=== PATIENT | male | born 1985 | race Caucasian/White ===

== ENCOUNTER 2021-01-25 12:19 | Emergency (ER) | payer BC, SELFPAY ==
[2021-01-25] VITALS (7 sets, daily range): BP systolic 123–144; BP diastolic 67–78; PULSE 74–109; RESP 16–20; TEMP 36.6–36.8; O2SAT 96–100; BMI 18.9; BMI 221360.5
--- NOTE | 2021-01-25 12:33 | PC.NURSE ---
CECILIA Whitfield MD NOTIFED
[2021-01-25 13:04] LABS: Basophils # 0.1 K/mm3 (0-0.2); Basophils % 1.2 % (0.1-2.0); Chloride 99 mmol/L (98-107); Eosinophils # 0.2 K/mm3 (0.0-0.4); Eosinophils % 2.2 % (0.1-12.0); Hematocrit 41.7 % (42.0-52.0); Hemoglobin 13.6 g/dL (14.1-18.0); Lymphocytes # 2.3 K/mm3 (0.7-4.5); Lymphocytes % 30.6 % (10-50); Mean Corpuscular HGB Conc 32.6 g/dL (31.8-35.4); Mean Corpuscular Hemoglobin 31.1 pg (27.0-31.2); Mean Corpuscular Volume 95.5 fl (80-94); Mean Platelet Volume 7.9 fl (7.4-10.4); Monocytes # 0.5 K/mm3 (0.1-1.0); Monocytes % 6.2 % (1.7-9.3); Neutrophils # 4.6 K/mm3 (1.8-7.8); Neutrophils % 59.8 % (37.0-80.0); Platelet Count 223 K/mm3 (142-424); Red Blood Count 4.37 M/mm3 (4.60-6.20); Red Cell Distribution Width 13.3 % (11.5-17.5); White Blood Count 7.7 K/mm3 (4.8-10.8)
[2021-01-25 13:05] LABS: Potassium 3.8 mmoL/L (3.5-5.1); Sodium 135 mmol/L (136-145)
[2021-01-25 13:07] LABS: VBG Base Excess 0.9 mmol/L (-2.4-2.3); VBG HCO3 25.2 mmol/L (23-30); VBG Oxygen Saturation 97.4 % (50-70); VBG PH 7.43 mmol/L (7.31-7.41); VBG PO2 95.1 mmol/L (28-40); VBG Total CO2 26.4 mmol/L (23-27)
[2021-01-25 13:07] LABS: Alanine Aminotransferase 60 U/L (12-78); Aspartate Amino Transferase 32 U/L (17-59); Blood Urea Nitrogen 16 mg/dl (9-20); Creatinine Clearance Estimated 246 mL/min (50-200); Estimated Glomerular Filt Rate 243 ml/min (>60); GFR (African American) 295 ML/MIN (>60)
[2021-01-25 13:08] LABS: Albumin Level 3.8 g/dl (3.5-5.0); Albumin/Globulin Ratio 1.5 (1.1-1.8); Alkaline Phosphatase 97 U/L (38-126); Anion Gap 9.8 mEq/L (5-15); Bilirubin,Total 1.7 mg/dl (0.2-1.3); Calcium 9.5 mg/dl (8.4-10.2); Carbon Dioxide 30 mmol/L (22.0-30.0); Globulin 2.5 g/dL (1.3-3.2); Total Protein,Serum 6.3 g/dl (6.3-8.2)
[2021-01-25 13:11] LABS: Glucose 572 mg/dl (74-100)
[2021-01-25 14:03] LABS: Acetone, Serum (Rapid) None Detected (None Detect)
--- NOTE | 2021-01-25 14:17 | PC.NURSE ---
REPEAT GLUCOSE CHECK: 514. MADE AWARE
--- NOTE | 2021-01-25 14:19 | HMH.EDGENADL ---
ED Disposition Clinical Impression: Hyperglycemia due to type 1 diabetes mellitus, Lightheaded, Nausea Disposition: Home, Self-Care Condition on Discharge: Good Instructions: DI for Hyperglycemia -- Adult Additional Instructions: Continue your usual diabetes treatment. Follow-up with your primary care doctor, call tomorrow. Return to the emergency department any worsening of symptoms. Referrals: Sundeep Lowery [Primary Care Provider] - - Critical Care Critical Care Time: No Attestation: On 01/25/21, the high probability of a clinically significant, sudden or life threatening deterioration of the following system(s) required my full and direct attention, intervention and personal management. The time I documented below is in addition to time spent performing reported procedures but includes the following listed in this critical care notation. Medical Decision Making - Ariel Inquiry Pt receiving controlled substance: No Vital Signs: 01/25/21 12:19 01/25/21 12:28 01/25/21 12:46 Temperature 97.9 F 98.3 F Temperature Source Oral Oral Pulse Rate [Right Radial] 91 H 105 H 74 Respiratory Rate 18 18 16 Blood Pressure [Right Arm] 123/71 127/75 125/78 Blood Pressure Mean [Right Arm] 88 92 93 Blood Pressure Source [Right Arm] Automatic Cuff Automatic Cuff Blood Pressure Position [Right Arm] Supine Supine Supine 02 Sat by Pulse Oximetry 98 100 99 Oxygen Delivery Method Room Air Room Air 01/25/21 13:19 01/25/21 13:30 01/25/21 14:00 Temperature Temperature Source Pulse Rate [Right Radial] 102 H 88 91 H Respiratory Rate 17 16 Blood Pressure [Right Arm] 127/71 144/71 H 123/67 Blood Pressure Mean [Right Arm] 89 95 85 Blood Pressure Source [Right Arm] Automatic Cuff Blood Pressure Position [Right Arm] Supine Supine 02 Sat by Pulse Oximetry 96 98 98 Oxygen Delivery Method Room Air - Lab Data Lab results reviewed: Yes: I reviewed the patient's lab results. Lab Results 01/25/21 12:38: WBC 7.7, RBC 4.37 L, Hgb 13.6 L, Hct 41.7 L, MCV 95.5 H, MCH 31.1, MCHC 32.6, RDW 13.3, Plt Count 223, MPV 7.9, Neut % (Auto) 59.8, Lymph % (Auto) 30.6, [place] % (Auto) 6.2, Eos % (Auto) 2.2, Baso % (Auto) 1.2, Neut # (Auto) 4.6, Lymph # (Auto) 2.3, [place] # (Auto) 0.5, Eos # (Auto) 0.2, Baso # (Auto) 0.1 01/25/21 12:38: Sodium 135 L, Potassium 3.8, Chloride 99, Carbon Dioxide 30, Anion Gap 9.8, BUN 16, Creatinine 0.40 L, Estimated Creat Clear 246, Estimated GFR 243, Est GFR ( Amer) 295, Glucose 572 H*, Calcium 9.5, Total Bilirubin 1.7 H, AST 32, ALT 60, Alkaline Phosphatase 97, Total Protein 6.3, Albumin 3.8, Globulin 2.5, Albumin/Globulin Ratio 1.5, Acetone Level None detected 01/25/21 12:57: VBG pH 7.43 H, VBG pCO2 39.0, VBG pO2 95.1 H, VBG HCO3 25.2, VBG Total CO2 26.4, VBG O2 Saturation 97.4 H, VBG Base Excess 0.9 Result diagrams: 01/25/21 12:38 01/25/21 12:38 Orders (Tests/Meds): ED MEDICATIONS Discontinued Medications Generic Name Dose Route Start Last Admin Trade Name Mohan PRN Reason Stop Dose Admin Sodium Chloride 1,000 mls @ 999 mls/hr 01/25/21 13:00 01/25/21 13:09 Sod Chlor 0.9% 1000ml Bag IV 01/25/21 14:00 999 mls/hr .Q1H1M MANI Administration Medical Decision Narrative: The patient has hyperglycemia without signs of DKA. He now feels normal and wants to go home without any further evaluation. This sounds reasonable. He will be given injection of subcutaneous insulin prior to discharge and says that he will check his blood sugar at home. Return if any of his symptoms worsen. Follow-up with his primary care provider. General Adult HPI - General Chief complaint: Abdominal Pain Stated complaint: dizzy Time Seen by Provider: 01/25/21 14:19 Mode of Arrival: Wheelchair Limitations: No Limitations Description of Symptoms (Recalled from ER Triage Doc. by RN): RLQ pain - History of Present Illness HPI narrative: Patient says that he was running high blood sugar today and
[2021-01-25 19:43] LABS: POC Glucose,Bedside 529 (70-110)
[2021-01-25 19:43] LABS: POC Glucose,Bedside 514 (70-110)
== END 2021-01-25 15:02 | disposition home or self-care (01) ==
PROVIDERS: Emergency Provider Emergency Medicine; PCP Family Medicine
DX: E10.65 Type 1 diabetes mellitus with hyperglycemia (principal); Z79.4 Long term (current) use of insulin; Z79.84 Long term (current) use of oral hypoglycemic drugs
CPT/HCPCS: 80053; 82009; 82803; 82962; 85025; 96365; 96372; 99283

== ENCOUNTER 2022-06-18 21:06 | Inpatient (IN) | payer BC, SELFPAY ==
[2022-06-18] VITALS (9 sets, daily range): BP systolic 92–115; BP diastolic 53–71; PULSE 98–112; RESP 18; TEMP 37.4; O2SAT 97–100; BMI 18.6
[2022-06-18 21:55] LABS: Basophils # 0.1 K/mm3 (0-0.2); Basophils % 1.3 % (0.1-2.0); Eosinophils # 0.3 K/mm3 (0.0-0.4); Eosinophils % 2.6 % (0.1-12.0); Hematocrit 38.1 % (42.0-52.0); Hemoglobin 12.7 g/dL (14.1-18.0); Lymphocytes # 2.5 K/mm3 (0.7-4.5); Lymphocytes % 25.6 % (10-50); Mean Corpuscular HGB Conc 33.4 g/dL (31.8-35.4); Mean Corpuscular Hemoglobin 29.9 pg (27.0-31.2); Mean Corpuscular Volume 89.5 fl (80-94); Monocytes # 0.5 K/mm3 (0.1-1.0); Monocytes % 4.9 % (1.7-9.3); Neutrophils # 6.3 K/mm3 (1.8-7.8); Neutrophils % 65.6 % (37.0-80.0); Platelet Count 255 K/mm3 (142-424); Red Blood Count 4.26 M/mm3 (4.60-6.20); Red Cell Distribution Width 12.9 % (11.5-17.5); White Blood Count 9.6 K/mm3 (4.8-10.8)
[2022-06-18 21:55] LABS: POC Glucose,Bedside 402 (70-110)
[2022-06-18 21:56] LABS: Alanine Aminotransferase 59 U/L (12-78); Albumin Level 3.7 g/dl (3.5-5.0); Albumin/Globulin Ratio 1.6 (1.1-1.8); Alkaline Phosphatase 105 U/L (38-126); Anion Gap 23.9 mEq/L (5-15); Aspartate Amino Transferase 22 U/L (17-59); Bilirubin,Total 1.4 mg/dl (0.2-1.3); Blood Urea Nitrogen 22 mg/dl (9-20); Calcium 8.9 mg/dl (8.4-10.2); Chloride 107 mmol/L (98-107); Creatinine Clearance Estimated 97 mL/min (50-200); Estimated Glomerular Filt Rate 95 ml/min (>60); GFR (African American) 115 ML/MIN (>60); Globulin 2.3 g/dL (1.3-3.2); Potassium 3.9 mmoL/L (3.5-5.1); Sodium 137 mmol/L (136-145)
[2022-06-18 21:59] LABS: Carbon Dioxide 10 mmol/L (22.0-30.0); Glucose 407 mg/dl (74-100)
[2022-06-18 22:04] LABS: Acetone, Serum (Rapid) Moderate (None Detect)
[2022-06-19] VITALS (13 sets, daily range): BP systolic 90–103; BP diastolic 51–66; PULSE 77–101; RESP 15–20; TEMP 36.6–36.9; O2SAT 97–100; BMI 18.1; BMI 195.9
[2022-06-19 00:17] LABS: Coronavirus 19, PCR Not Detected (NotDetected); Influenza A, PCR Not Detected (NotDetected); Influenza B, PCR Not Detected (NotDetected)
[2022-06-19 01:51] LABS: POC Glucose,Bedside 314 (70-110)
--- NOTE | 2022-06-19 02:45 | PC.NURSE ---
Patient is resting in bed. He currently does not verbalize and complaints or discomfort
[2022-06-19 03:02] LABS: Microscopic, Urine URINE MICROSCOPIC (MICROSCOPIC)
--- NOTE | 2022-06-19 03:11 | HMH.EDGENADL ---
ED Disposition Clinical Impression: Hyperglycemia due to type 1 diabetes mellitus, Tobacco use, Low body mass index (BMI) Diabetic ketoacidosis Qualifiers: Diabetes mellitus type: type 1 Diabetes mellitus complication detail: without coma Qualified Code(s): E10.10 - Type 1 diabetes mellitus with ketoacidosis without coma Disposition: Admitted As Inpatient Condition on Discharge: Serious Instructions: DI for Hyperglycemia -- Adult Referrals: Provider,Referral, MD [Primary Care Provider] - - Critical Care Critical Care Time: No Attestation: On 06/18/22, the high probability of a clinically significant, sudden or life threatening deterioration of the following system(s) required my full and direct attention, intervention and personal management. The time I documented below is in addition to time spent performing reported procedures but includes the following listed in this critical care notation. Medical Decision Making - Medical Records Medical records reviewed: Yes: I reviewed the patient's medical records. - Ariel Inquiry Pt receiving controlled substance: No Vital Signs: 06/18/22 21:01 Temperature 99.4 F Temperature Source Oral Pulse Rate [Left] 98 H Respiratory Rate 18 Blood Pressure [Right Arm] 115/71 Blood Pressure Mean [Right Arm] 85 02 Sat by Pulse Oximetry 100 - Lab Data Lab results reviewed: Yes: I reviewed the patient's lab results. Lab Results 06/18/22 21:06: POC Glucose 402 H* 06/18/22 21:35: WBC 9.6, RBC 4.26 L, Hgb 12.7 L, Hct 38.1 L, MCV 89.5, MCH 29.9, MCHC 33.4, RDW 12.9, Plt Count 255, MPV 8.0, Neut % (Auto) 65.6, Lymph % (Auto) 25.6, [place] % (Auto) 4.9, Eos % (Auto) 2.6, Baso % (Auto) 1.3, Neut # (Auto) 6.3, Lymph # (Auto) 2.5, [place] # (Auto) 0.5, Eos # (Auto) 0.3, Baso # (Auto) 0.1 06/18/22 21:35: Sodium 137, Potassium 3.9, Chloride 107, Carbon Dioxide 10 L, Anion Gap 23.9 H, BUN 22 H, Creatinine 0.90, Estimated Creat Clear 97, Estimated GFR 95, Est GFR ( Amer) 115, Glucose 407 H*, Calcium 8.9, Total Bilirubin 1.4 H, AST 22, ALT 59, Alkaline Phosphatase 105, Total Protein 6.0 L, Albumin 3.7, Globulin 2.3, Albumin/Globulin Ratio 1.6 06/18/22 21:35: Acetone Level Moderate 06/19/22 00:15: SARS-CoV-2 (PCR) Not detected, Influenza A Untype (PCR) Not detected, Influenza Type B (PCR) Not detected 06/19/22 00:42: POC Glucose 314 H* 06/19/22 02:45: Sodium 135 L, Potassium 3.5, Chloride 108 H, Carbon Dioxide 15 L, Anion Gap 15.5 H, BUN 21 H, Creatinine 0.70 D, Estimated Creat Clear 124, Estimated GFR 127, Est GFR ( Amer) 154 D, Glucose 287 H D, Calcium 8.2 L, Acetone Level Small 06/19/22 02:47: Urine Color Yellow, Urine Appearance Clear, Urine pH 5.5, Ur Specific [place] 1.025, Urine Protein Negative, Urine Glucose (UA) 3+, Urine Ketones 3+, Urine Blood Trace-l, Urine Nitrate Negative, Urine Bilirubin Negative, Urine Urobilinogen 0.2, Ur Leukocyte Esterase Negative, Urine RBC Occasional, Urine WBC Occasional, Amorphous Sediment 2+, Urine Mucus 2+ Result diagrams: 06/18/22 21:35 06/19/22 02:45 Orders (Tests/Meds): ED MEDICATIONS Generic Name Dose Route Start Last Admin Trade Name Freq PRN Reason Stop Dose Admin Sodium Chloride 1,000 mls @ 999 mls/hr 06/18/22 22:30 06/18/22 23:01 Sod Chlor 0.9% 1000ml Bag IV 06/18/22 23:30 999 mls/hr .Q1H1M MANI Administration Sodium Chloride 1,000 mls @ 999 mls/hr 06/19/22 00:00 06/19/22 00:15 Sod Chlor 0.9% 1000ml Bag IV 06/19/22 01:00 999 mls/hr .Q1H1M MANI Administration Sodium Chloride 1,000 mls @ 150 mls/hr 06/19/22 02:30 Sod Chlor 0.9% 1000ml Bag IV 07/19/22 02:29 .Q6H40M MANI Insulin Human Regular 100 unit 101 mls @ 2.02 mls/hr 06/19/22 03:30 / Sodium Chloride IV 07/19/22 03:29 .Q25H MANI Protocol 2 UNITS/HR Discontinued Medications Generic Name Dose Route Start Last Admin Trade Name Freq PRN Reason Stop Dose Admin Insulin Human Regular 5 unit 06/19/22 00:00 06/19/22 00:14
[2022-06-19 03:12] LABS: Acetone, Serum (Rapid) Small (None Detect)
[2022-06-19 03:12] LABS: Appearance,Urine CLEAR (Clear); Blood, Urine TRACE-L (Negative); Color,Urine YELLOW (Yellow); Glucose,Urine (UA) 3+ (Negative); Ketones,Urine 3+ (Negative); Leukocyte Esterase,Urine Negative (Negative); Nitrate,Urine Negative (Negative); PH,Urine 5.5 (5.0-8.5); Protein,Urine Negative (Negative); Specific Gravity, Urine 1.025 (1.005-1.030); Urobilinogen,Urine 0.2 EU/dl (0.2)
[2022-06-19 03:13] LABS: Chloride 108 mmol/L (98-107); Sodium 135 mmol/L (136-145)
[2022-06-19 03:14] LABS: Potassium 3.5 mmoL/L (3.5-5.1)
[2022-06-19 03:16] LABS: Bilirubin,Urine Negative (Negative)
[2022-06-19 03:16] LABS: Anion Gap 15.5 mEq/L (5-15); Blood Urea Nitrogen 21 mg/dl (9-20); Carbon Dioxide 15 mmol/L (22.0-30.0); Creatinine Clearance Estimated 124 mL/min (50-200); Estimated Glomerular Filt Rate 127 ml/min (>60); GFR (African American) 154 ML/MIN (>60)
[2022-06-19 03:17] LABS: Calcium 8.2 mg/dl (8.4-10.2); Glucose 287 mg/dl (74-100)
[2022-06-19 03:19] LABS: Amorphous Sediment,Urine 2+ /lpf; Mucus,Urine 2+ /lpf; RBC,Urine Occasional #/hpf (0-3); WBC,Urine Occasional #/hpf (0-3)
--- NOTE | 2022-06-19 03:23 | PC.NURSE ---
Dr. Anderson paged for ED doctor
[2022-06-19 03:27] LABS: Amphetamine/Metha Screen,Urine Negative ng/ml (<1000)
[2022-06-19 03:28] LABS: Barbiturates Screen,Urine Negative ng/ml (<200); Benzodiazepines Screen,Urine Negative ng/ml (<200)
--- NOTE | 2022-06-19 03:28 | PC.NURSE ---
PATIENT ADMITTED OBSERVATION TO [address] WITH DX OF DKA TO SERVICE DR. PLAZA.
[2022-06-19 03:29] LABS: Cannabinoid Screen,Urine Negative ng/ml (<50)
[2022-06-19 03:30] LABS: Cocaine Screen,Urine Negative ng/ml (<300); Methadone Screen,Urine Negative ng/ml (<300)
[2022-06-19 03:31] LABS: Opiate Screen,Urine Negative ng/ml (<300)
[2022-06-19 03:32] LABS: Phencyclidine Screen,Urine Negative ng/ml (<25)
--- NOTE | 2022-06-19 03:37 | PC.NURSE ---
Release of information faxed to [facility]
--- NOTE | 2022-06-19 04:07 | PC.NURSE ---
patient up to floor via stretcher @ this time.
[2022-06-19 05:53] LABS: POC Glucose,Bedside 256 (70-110)
[2022-06-19 06:13] LABS: Basophils # 0.1 K/mm3 (0-0.2); Basophils % 1.1 % (0.1-2.0); Eosinophils # 0.3 K/mm3 (0.0-0.4); Eosinophils % 3.7 % (0.1-12.0); Hematocrit 31.2 % (42.0-52.0); Lymphocytes # 2.7 K/mm3 (0.7-4.5); Lymphocytes % 33.3 % (10-50); Mean Corpuscular HGB Conc 34.8 g/dL (31.8-35.4); Mean Platelet Volume 7.8 fl (7.4-10.4); Monocytes # 0.5 K/mm3 (0.1-1.0); Monocytes % 6.5 % (1.7-9.3); Neutrophils # 4.5 K/mm3 (1.8-7.8); Neutrophils % 55.5 % (37.0-80.0); Platelet Count 213 K/mm3 (142-424); Red Blood Count 3.63 M/mm3 (4.60-6.20)
[2022-06-19 06:19] LABS: Anion Gap 14.3 mEq/L (5-15); Blood Urea Nitrogen 18 mg/dl (9-20); Calcium 7.7 mg/dl (8.4-10.2); Carbon Dioxide 14 mmol/L (22.0-30.0); Chloride 109 mmol/L (98-107); Creatinine Clearance Estimated -81 mL/min (50-200); Estimated Glomerular Filt Rate 127 ml/min (>60); GFR (African American) 154 ML/MIN (>60); Glucose 230 mg/dl (74-100); Magnesium 1.4 mg/dl (1.6-2.3); Potassium 3.3 mmoL/L (3.5-5.1); Sodium 134 mmol/L (136-145)
[2022-06-19 06:23] LABS: Acetone, Serum (Rapid) Moderate (None Detect)
--- NOTE | 2022-06-19 06:27 | PC.NURSE ---
Pt sleeping at this time in bed. NS infusing @ 150 ml/hr. Insulin is @ 2 units/hr. Last fsbs was 204. Awaiting AM lab results. Teds applied. VSS. Pt has had one incontinent BM since arrival to floor. Call light within reach.
[2022-06-19 06:36] LABS: POC Glucose,Bedside 204 (70-110)
[2022-06-19 06:46] LABS: Hemoglobin 10.9 g/dL (14.1-18.0)
--- NOTE | 2022-06-19 07:15 | HMH.PHAVTE ---
[facility] Pharmacy VTE Monitoring - Patient Demographics Admission date: 06/19/22 Report Date: 06/19/22 Time: 07:15 Allergies/Adverse Reactions: Patient Allergies No Known Allergies Allergy (Verified 01/25/21 12:37) Height: 54.86 cm Weight: 58.995 kg Patient Problems: Current Active Problems Hyperglycemia due to type 1 diabetes mellitus (Acute) Diabetic ketoacidosis (Acute) Tobacco use (Acute) Low body mass index (BMI) (Acute) - VTE Risk Labs: VTE Related Lab Results Hgb 10.9 g/dL (14.1-18.0) L D 06/19/22 05:30 Hct 31.2 % (42.0-52.0) L 06/19/22 05:30 Plt Count 213 K/mm3 (142-424) 06/19/22 05:30 BUN 18 mg/dl (9-20) 06/19/22 05:30 Creatinine 0.70 mg/dl (0.66-1.25) 06/19/22 05:30 Estimated Creat Clear -81 mL/min (50-200) L 06/19/22 05:30 VTE Risk Level: Low Risk - Prophylaxis VTE Prophylaxis Ordered?: Yes Types of VTE Prophylaxis: TEDS Knee High Location of Applied Device: Bilateral Lower Extremeties
--- NOTE | 2022-06-19 07:20 | HMH.PHAINT ---
MEDICATION RECONCILIATION COMPLETED ON PATIENT USING EXTERNAL FILL HISTORY FROM PHARMACY. -EVA MAYO, SINAND
[2022-06-19 08:01] LABS: POC Glucose,Bedside 275 (70-110)
--- NOTE | 2022-06-19 08:55 | HMH.HP ---
*Admission Date: 06/19/22 <Eliza Lechuga 06/19/22 09:11> *Chief complaint: Hypotension and hyperglycemia <Eliza Lechuga 06/19/22 09:11> *History of present illness: Mr. Gutierrez is a 36-year-old male patient with a history of type 1 diabetes mellitus who presented to [facility] emergency room stating that he thought his blood pressure was low and that his blood sugar was elevated. Evaluation in the emergency room white blood cell count was 9600 with a hemoglobin of 12.7 hematocrit of 38.1. Anion Was 15.5. BUN 21 and creatinine 0.7.Blood sugar was elevated at 287 with a calcium of 8.2. He had a small level of acetone.He received several liters of IV fluids. He was given 5 units of regular insulin and started on an insulin drip. He gives a history of having been in the [facility] 2 to 3 weeks ago with hypotension and elevated blood sugar. He states he is not sure if he takes his insulin every day but is supposed to take 40 units of Lantus at night with 10 units of regular insulin before every meal. He relates that he does not eat very well because he has no food. He states he cannot afford food. He does smoke about a half a pack of cigarettes a day and denies drinking alcohol. This morning after admission he has had breakfast and ate 2 trays of food. Denies any pain and no nausea or vomiting. He also gives a history of 2+ years of diarrhea for which she sees a document advisor. He has had a fecal transplant and colonoscopy and nothing has helped. He has had 2 stools and has had to being cleaned up twice since admission. He has frequent incontinence. Patient remains on insulin drip and last acetone level was moderate <Eliza Lechuga 06/19/22 09:11> [facility] [place] History Medical History: Reports:: Diabetes Mellitus Type 1 <Eliza Lechuga 06/19/22 09:11> *Have you ever received a pneumonia vaccine?: Yes <Louann Lechugahy 06/19/22 09:11> *Have you received a flu vaccine this season?: Yes <Louann Lechugahy 06/19/22 09:11> Comment: He has had surgery on his jaw and pinky finger <Eliza Lechuga 06/19/22 09:11> - *Social History Smoking Status: Current every day smoker <Elchuga,Eliza - 06/19/22 09:11> Tobacco Type: cigarettes <AnkushEliza - 06/19/22 09:11> # Packs/Day (cigarettes): 1 <Lechuga,Eliza - 06/19/22 09:11> Alcohol Intake: current <Eliza Lechuga 06/19/22 09:11> Alcohol Intake Frequency:: holidays/special occasions only <Eliza Lechuga 06/19/22 09:11> Substance Use Type: denies use <AnkushEliza 06/19/22 09:11> *Occupational Status:: disabled <Eliza Lechuga 06/19/22 09:11> Housing: apartment <Eliza Lechuga 06/19/22 09:11> Household Members: none <Eliza Lechuga 06/19/22 09:11> *Travel in the last 8 weeks: None <Eliza Lechuga 06/19/22 09:11> Family Hx:: Diabetes <Eliza Lechuga 06/19/22 09:11> Review of Systems - Constitutional Reports lack of energy, Denies fever(s) <Eliza Lechuga 06/19/22 09:11> Comments: Hunger <Eliza Lechuga 06/19/22 09:11> - Eyes Denies change in vision <Eliza Lechuga 06/19/22 09:11> - ENT Denies ear pain, Denies sore throat <Eliza Lechuga 06/19/22 09:11> - *Cardiovascular Denies chest pain, Denies shortness of breath <Eliza Lechuga 06/19/22 09:11> - *Respiratory Denies chest congestion, Denies cough, Denies shortness of breath <Eliza Lechuga 06/19/22 09:11> - *Gastrointestinal Reports loose stools, Reports incontinent of stools, Denies bright, red blood in stools, Denies black, tarry stools, Denies nausea, Denies vomiting <Eliza Lechuga 06/19/22 09:11> - *Genitourinary Reports difficulty urinating (Difficult to start stream) <Eliza Lechuga 06/19/22 09:11> - *Musculoskeletal Denies abnormal walking <Eliza Lechuga 06/19/22 09:11> - *Neurologic Reports weakness, Denies headache(s), Denies seizure-like activity <Eliza Lechuga 06/19/22 09:11> Meds Home Medications Medication Instructions R
[2022-06-19 09:13] LABS: Anion Gap 13.5 mEq/L (5-15); Blood Urea Nitrogen 17 mg/dl (9-20); Calcium 7.8 mg/dl (8.4-10.2); Carbon Dioxide 14 mmol/L (22.0-30.0); Chloride 110 mmol/L (98-107); Creatinine Clearance Estimated -81 mL/min (50-200); Estimated Glomerular Filt Rate 127 ml/min (>60); GFR (African American) 154 ML/MIN (>60); Glucose 228 mg/dl (74-100); Potassium 3.5 mmoL/L (3.5-5.1); Sodium 134 mmol/L (136-145)
[2022-06-19 09:44] LABS: Thyroid Stimulating Hormone 1.07 uIU/mL (0.465-4.68)
--- NOTE | 2022-06-19 09:59 | SW/DCPLANNER ---
I spoke with this patient regarding plans once he is medically stable for discharge. Patient stated that he does have his own vehicle and is able to drive. Patient resides at home alone and stated that he does well at home. Patient expressed the only need that he will have is transportation home at time of discharge. I explained to patient that he may be responsible for cost of transportation due to having a vehicle in his name. I will continue to follow up with this patient until medically stable for discharge. Discharge date is unknown at this time.
[2022-06-19 10:07] LABS: Chloride 110 mmol/L (98-107); Potassium 3.5 mmoL/L (3.5-5.1); Sodium 136 mmol/L (136-145)
[2022-06-19 10:10] LABS: Anion Gap 7.5 mEq/L (5-15); Blood Urea Nitrogen 16 mg/dl (9-20); Calcium 7.4 mg/dl (8.4-10.2); Carbon Dioxide 22 mmol/L (22.0-30.0); Estimated Glomerular Filt Rate 152 ml/min (>60); GFR (African American) 183 ML/MIN (>60); Glucose 151 mg/dl (74-100)
--- NOTE | 2022-06-19 10:25 | PC.NURSE ---
Spoke to MD Anderson regarding pt's Anion Gap being 7.5. Asked MD if he would like to transition to subcutaneous transition phase or wait for Acetone at 1730. MD would like to wait for the next Acetone result this evening before transitioning.
[2022-06-19 12:28] LABS: Adenovirus F 40/41, stool Not Detected (NotDetected); Astrovirus Not Detected (NotDetected); Campylobacter Not Detected (NotDetected); Clostridium Difficile A/B, PCR Not Detected (NotDetected); Cryptosporidium Not Detected (NotDetected); Cyclospora Cayetanesis Not Detected (NotDetected); Entamoeba histolytica Not Detected (NotDetected); Enteroaggregative E coli Not Detected (NotDetected); Enteropathogenic E coli Not Detected (NotDetected); Enterotoxigenic E coli Not Detected (NotDetected); Giardia lamblia Not Detected (NotDetected); Norovirus Not Detected (NotDetected); Plesimonas Shigalloides, PCR Not Detected (NotDetected); Rotavirus A Not Detected (NotDetected); Salmonella, PCR Not Detected (NotDetected); Sapovirus Not Detected (NotDetected); Shiga-like toxin E coli Not Detected (NotDetected); Shigella Enterovasive E coli Not Detected (NotDetected); Vibrio Cholerae Not Detected (NotDetected); Vibrio, PCR Not Detected (NotDetected); Yersinia Entercolitica, PCR Not Detected (NotDetected)
[2022-06-19 13:53] LABS: Chloride 108 mmol/L (98-107); Potassium 3.5 mmoL/L (3.5-5.1); Sodium 134 mmol/L (136-145)
[2022-06-19 13:56] LABS: Anion Gap 5.5 mEq/L (5-15); Blood Urea Nitrogen 16 mg/dl (9-20); Carbon Dioxide 24 mmol/L (22.0-30.0); Estimated Glomerular Filt Rate 152 ml/min (>60); GFR (African American) 183 ML/MIN (>60); Glucose 256 mg/dl (74-100)
[2022-06-19 15:25] LABS: POC Glucose,Bedside 132 (70-110)
[2022-06-19 15:25] LABS: POC Glucose,Bedside 142 (70-110)
[2022-06-19 15:25] LABS: POC Glucose,Bedside 151 (70-110)
[2022-06-19 15:25] LABS: POC Glucose,Bedside 240 (70-110)
[2022-06-19 15:25] LABS: POC Glucose,Bedside 232 (70-110)
[2022-06-19 15:25] LABS: POC Glucose,Bedside 193 (70-110)
[2022-06-19 15:25] LABS: POC Glucose,Bedside 180 (70-110)
[2022-06-19 15:25] LABS: POC Glucose,Bedside 169 (70-110)
--- NOTE | 2022-06-19 16:23 | PC.NURSE ---
Pt diarrhea panel had no positive results. Pt taken out of contact enteric precautions at this time.
--- NOTE | 2022-06-19 17:19 | PC.NURSE ---
Addendum entered by Kimberley Delgado RN 06/19/22 18:26: 1800-FSBS 371. Insulin gtt increased to 3units/hr. K+ is 3.4. MIVF changed to NS w/ 40 K+ @ 125mL/hr Original Note: 0800- FSBS 151. Continue 2units/hr. K+ 3.3 MIVF changed to NS w/ 40meq of K+ @ 125 0900- FSBS 142. Decrease to 1unit/hr MIV changed to D5NS w/ 40meq of K+ @ 75mL/hr 1000- FSBS 132. . Continue same rate of Insulin gtt. K+ 3.5. MIVF changed to D5NS w/ 20meq of K+ @ 75mL/hr 1100- FSBS 193. Continue Insulin gtt @ current rate 1200- FSBS 169. Continue Insulin gtt @ current rate 1300- FSBS 232. Continue Insulin gtt @ current rate 1500- FSBS 240. Continue Insulin gtt @ current rate 1700- FSBS 281. Increased Insulin gtt to 2units/hr and changed MIVF to NS w/ 20 K+ @ 125mL/hr *will go back to q1h FSBS per protocol Pt has turned himself in bed this shift. Thus far pt has had x3 LArge, loose incontinent BM's. Appetite good. Pt has eaten 100% of all meals thus far. NSR on tele. Pt remains on RA thus far. Pt has been very tearful about everything going on . Pt not easily redirected. Awaiting 1730 labs. No other acute changes so far this shift.
[2022-06-19 18:03] LABS: Chloride 107 mmol/L (98-107); Sodium 135 mmol/L (136-145)
[2022-06-19 18:04] LABS: Potassium 3.4 mmoL/L (3.5-5.1)
[2022-06-19 18:07] LABS: Anion Gap 7.4 mEq/L (5-15); Blood Urea Nitrogen 14 mg/dl (9-20); Calcium 8.1 mg/dl (8.4-10.2); Carbon Dioxide 24 mmol/L (22.0-30.0); Creatinine Clearance Estimated -114 mL/min (50-200); Estimated Glomerular Filt Rate 187 ml/min (>60); GFR (African American) 226 ML/MIN (>60); Glucose 315 mg/dl (74-100)
[2022-06-19 18:13] LABS: Acetone, Serum (Rapid) Small (None Detect)
[2022-06-19 18:49] LABS: POC Glucose,Bedside 371 (70-110)
[2022-06-19 18:49] LABS: POC Glucose,Bedside 281 (70-110)
--- NOTE | 2022-06-19 19:53 | PC.NURSE ---
fsbs 488, increased insulin drip to 6units/hr per dka protocol
--- NOTE | 2022-06-19 20:50 | PC.NURSE ---
pt soiled himself, SRNA and RN gave pt bath and changed sheets, pt given urinal to use if needs to void and placed attends on pt in case has any more incontinent episodes fsbs 390, increased insulin drip to 12units/hr per protocol
[2022-06-19 21:48] LABS: Chloride 109 mmol/L (98-107); Sodium 136 mmol/L (136-145)
[2022-06-19 21:49] LABS: Potassium 3.4 mmoL/L (3.5-5.1)
[2022-06-19 21:51] LABS: Blood Urea Nitrogen 14 mg/dl (9-20); Creatinine Clearance Estimated -114 mL/min (50-200); Estimated Glomerular Filt Rate 187 ml/min (>60); GFR (African American) 226 ML/MIN (>60)
[2022-06-19 21:52] LABS: Anion Gap 5.4 mEq/L (5-15); Calcium 8.2 mg/dl (8.4-10.2); Carbon Dioxide 25 mmol/L (22.0-30.0); Glucose 325 mg/dl (74-100)
[2022-06-20] VITALS (11 sets, daily range): BP systolic 86–121; BP diastolic 51–94; PULSE 72–110; RESP 14–20; TEMP 36.5–36.9; O2SAT 95–100; BMI 17.4
[2022-06-20 00:51] LABS: POC Glucose,Bedside 297 (70-110)
[2022-06-20 00:51] LABS: POC Glucose,Bedside 217 (70-110)
[2022-06-20 00:51] LABS: POC Glucose,Bedside 214 (70-110)
[2022-06-20 00:51] LABS: POC Glucose,Bedside 390 (70-110)
[2022-06-20 00:51] LABS: POC Glucose,Bedside 488 (70-110)
[2022-06-20 00:57] LABS: POC Glucose,Bedside 207 (70-110)
[2022-06-20 06:37] LABS: Acetone, Serum (Rapid) None Detected (None Detect)
[2022-06-20 06:47] LABS: POC Glucose,Bedside 179 (70-110)
[2022-06-20 06:47] LABS: POC Glucose,Bedside 208 (70-110)
[2022-06-20 06:47] LABS: POC Glucose,Bedside 59 (70-110)
[2022-06-20 06:47] LABS: POC Glucose,Bedside 166 (70-110)
[2022-06-20 06:47] LABS: POC Glucose,Bedside 129 (70-110)
[2022-06-20 06:47] LABS: POC Glucose,Bedside 63 (70-110)
--- NOTE | 2022-06-20 07:30 | PC.NURSE ---
0700 fsbs 179, acetone negative, awaiting bmp result to check if gap is closed before call
[2022-06-20 07:59] LABS: Anion Gap 6.9 mEq/L (5-15); Blood Urea Nitrogen 12 mg/dl (9-20); Carbon Dioxide 21 mmol/L (22.0-30.0); Chloride 112 mmol/L (98-107); Creatinine Clearance Estimated 161 mL/min (50-200); Estimated Glomerular Filt Rate 187 ml/min (>60); GFR (African American) 226 ML/MIN (>60); Glucose 199 mg/dl (74-100); Potassium 3.9 mmoL/L (3.5-5.1); Sodium 136 mmol/L (136-145)
--- NOTE | 2022-06-20 08:49 | PC.NURSE ---
Notified specialty clinic appt consult on pt for Trish Gleason
--- NOTE | 2022-06-20 09:15 | HMH.ACPN2 ---
<Eliza Lechuga - Last Filed: 06/20/22 09:15> Internal Medicine - PN: Subj *Date: 06/20/22 *Time: 09:15 Interval history: Patient looks very depressed. He states he cannot go on this way. He states when he eats it goes right through and he has the diarrhea. He is tired of having to clean up. He has diarrhea incontinence which is embarrassing to him. He cannot go any place because of the diarrhea. All his body is spent on supplies and he has no money for food. He states this has been going on for greater than 2 years. His mixer operator has not been able to help him. He sees him again next month. He has no friends and his family will not help him. Nursing reports that he is incontinent of stools. He does speak to them of not wanting to live. Insulin drip has been discontinued and he will be started back on his regular home insulin. Patient does continue to eat well. He can ambulate independently. Care management is working with him on discharge planning. Stool studies were negative. Acetone was negative today. BMP with a sodium of 136 and potassium of 3.9. BUN is 12 and creatinine 0.5. Exam Vital signs and Labs for Last 24 Hours: Temp Pulse Resp BP Pulse Ox 98.2 F 110 H 14 121/94 H 100 06/20/22 08:00 06/20/22 08:14 06/20/22 06:00 06/20/22 06:00 06/20/22 06:00 Laboratory Results - last 24 hr 06/19/22 05:30: Sodium 134 L, Potassium 3.5, Chloride 110 H, Carbon Dioxide 14 L, Anion Gap 13.5, BUN 17, Creatinine 0.70, Estimated Creat Clear -81 L, Estimated GFR 127, Est GFR ( Amer) 154, Glucose 228 H, Calcium 7.8 L, TSH 1.07 06/19/22 06:55: POC Glucose 180 H 06/19/22 08:16: POC Glucose 151 H 06/19/22 09:09: POC Glucose 142 H 06/19/22 09:51: Sodium 136, Potassium 3.5, Chloride 110 H, Carbon Dioxide 22, Anion Gap 7.5, BUN 16, Creatinine 0.60 L, Estimated Creat Clear -95 L, Estimated GFR 152, Est GFR ( Amer) 183, Glucose 151 H D, Calcium 7.4 L 06/19/22 10:15: POC Glucose 132 H 06/19/22 11:06: POC Glucose 193 H 06/19/22 12:05: Stl Aeromonas (PCR) Not detected, Stl C. cayetanensis PCR Not detected, Stool Rotavirus (PCR) Not detected, Stl Adenov F 40/41 PCR Not detected, Stool Astrovirus (PCR) Not detected, Stool Campylobacter PCR Not detected, Stl C.difficile Tox PCR Not detected, Stool Cryptosporidium PCR Not detected, Stl E.coli Shiga Tox PCR Not detected, Stool E coli O157 PCR Not detected, Stl Enterotoxigenic E PCR Not detected, Stool EPEC (PCR) Not detected, Stool EAEC (PCR) Not detected, Stl E. histolytica PCR Not detected, Stool Giardia Lamblia PCR Not detected, Stool Salmonella PCR Not detected, Stool Sapovirus (PCR) Not detected, Stl P. shigelloides PCR Not detected, Stl Shigella/EIEC PCR Not detected, St Y.enterocolitica PCR Not detected, Stool Vibrio (PCR) Not detected, Stl Vibrio cholerae PCR Not detected, Stl Norovirus GI/GII PCR Not detected 06/19/22 12:17: POC Glucose 169 H 06/19/22 13:30: POC Glucose 232 H 06/19/22 13:35: Sodium 134 L, Potassium 3.5, Chloride 108 H, Carbon Dioxide 24, Anion Gap 5.5, BUN 16, Creatinine 0.60 L, Estimated Creat Clear -95 L, Estimated GFR 152, Est GFR ( Amer) 183, Glucose 256 H D, Calcium 8.0 L 06/19/22 15:16: POC Glucose 240 H 06/19/22 17:06: POC Glucose 281 H 06/19/22 17:42: Acetone Level Small 06/19/22 17:42: Sodium 135 L, Potassium 3.4 L, Chloride 107, Carbon Dioxide 24, Anion Gap 7.4, BUN 14, Creatinine 0.50 L, Estimated Creat Clear -114 L, Estimated GFR 187, Est GFR ( Amer) 226 D, Glucose 315 H D, Calcium 8.1 L 06/19/22 18:24: POC Glucose 371 H* 06/19/22 19:50: POC Glucose 488 H* 06/19/22 20:46: POC Glucose 390 H* 06/19/22 21:33: Sodium 136, Potassium 3.4 L, Chloride 109 H, Carbon Dioxide 25, Anion Gap 5.4, BUN 14, Creatinine 0.50 L, Estimated Creat Clear -114 L, Estimated GFR 187, Est GFR ( Amer) 226, Glucose 325 H, Calcium 8.2 L 06/19/22 21:52: POC Glucose 297 H 06/19/22 23:00: POC Glucose 214 H 06/19/22 23:42: POC Glucose 217 H 06/20/22 00:48: P
--- NOTE | 2022-06-20 12:42 | PC.NURSE ---
pt did not eat lunc, per dietitian, give pt sandwich/his request. pt requested, grilled cheese and vegetables. fs at this time is 409
[2022-06-20 14:19] LABS: POC Glucose,Bedside 409 (70-110)
--- NOTE | 2022-06-20 14:32 | PC.NURSE ---
rounded on patient. no concerns or questions. did request a no sugar added hot chocolate and this was given to patient. patient has been noted to request frequent snacks. did educate on ordered diet, and risk of going back in to dka if diet wasn't watched. stated i wont go back in it . call light within reach encouraged patient to ring with any concerns or needs.
[2022-06-20 16:57] LABS: POC Glucose,Bedside 271 (70-110)
--- NOTE | 2022-06-20 17:28 | PC.NURSE ---
pt was very tearful this morning, he has been pleasant since then. pt has not been incontinent of bowel since taking lomotil. RA tolerating well with sats 99%, lungs clear. 20g ivs in bilateral upper arms, NS + 20K @50 mls/hr in the [facility]. 1430 FS 271. pt has done well ambulating to the br and using urinal. pt has frequently asked for different foods and drinks, within limits and per dietitian, food given to pt. pt wants to speak to case management tomorrow about placement somewhere. call harding and personal items within reach.
[2022-06-20 18:17] LABS: POC Glucose,Bedside 249 (70-110)
[2022-06-21 03:42] VITALS: BP 90/54; PULSE 96; RESP 16; TEMP 37; O2SAT 99
--- NOTE | 2022-06-21 03:58 | PC.NURSE ---
Pt has slept at intervals this shift. Has had incontinent episodes of urine and bowels. Has had fewer snacks tonight. VSS. Call light within reach.
[2022-06-21 04:57] VITALS: BMI 17.2
[2022-06-21 08:00] VITALS: BP 92/60; PULSE 106; RESP 17; TEMP 37; O2SAT 100
--- NOTE | 2022-06-21 08:19 | HMH.ACPN2 ---
<Vannesa Hendrickson - Last Filed: 06/21/22 08:19> Internal Medicine - PN: Subj *Date: 06/21/22 *Time: 08:19 Interval history: Patient states he feels awful this morning. He eats and continues to have diarrhea. He denies any abdominal pain. He did not rest well last night. He states he is not leaving until someone can figure out why he continues with diarrhea. He has seen 2 different GI physicians with no explanation. Exam Vital signs and Labs for Last 24 Hours: Temp Pulse Resp BP Pulse Ox 98.6 F 106 H 17 92/60 L 100 06/21/22 08:00 06/21/22 08:00 06/21/22 08:00 06/21/22 08:00 06/21/22 08:00 Laboratory Results - last 24 hr 06/20/22 11:36: POC Glucose 409 H* 06/20/22 16:08: POC Glucose 271 H 06/20/22 18:10: POC Glucose 249 H I & O for Last 24 hours: Intake & Output 06/18/22 06/19/22 06/20/22 06/21/22 11:59 11:59 11:59 11:59 Intake Total 3844 / 3844 2245 / 2245 3889 / 3889 Output Total 900 / 900 500 / 500 Balance 3844 / 3844 1345 / 1345 3389 / 3389 Weight 130 lb 1 oz 124 lb 1.571 oz 122 lb 12.8 oz - Constitutional no acute distress - *Routine Respiratory Exam Present: CTA bilaterally - *Routine Cardiovascular Exam Present: RRR - *Routine Abdominal Exam Present: soft, normoactive bowel sounds. Absent: tenderness - *Routine Extremities Exam Absent: cyanosis, clubbing, edema - *Routine Skin Exam Present: warm. Absent: rash - *Routine Neurological Exam Present: alert, oriented X3 Assessment and Plan (1) Diabetic ketoacidosis Status: Acute Qualifiers: Diabetes mellitus type: type 1 Diabetes mellitus complication detail: without coma Qualified Code(s): E10.10 - Type 1 diabetes mellitus with ketoacidosis without coma Category: Medical Code(s): E11.10 - Type 2 diabetes mellitus with ketoacidosis without coma (2) Chronic diarrhea Status: Chronic Category: Medical Code(s): K52.9 - Noninfective gastroenteritis and colitis, unspecified (3) Medical non-compliance Status: Chronic Category: Medical Code(s): Z91.19 - Patient's noncompliance with other medical treatment and regimen (4) Hyperglycemia due to type 1 diabetes mellitus Status: Acute Category: Medical Code(s): E10.65 - Type 1 diabetes mellitus with hyperglycemia (5) Low body mass index (BMI) Status: Chronic Category: Medical (6) Tobacco use Status: Chronic Category: Social Hx Code(s): Z72.0 - Tobacco use (7) Hypotension Status: Acute Category: Medical Code(s): I95.9 - Hypotension, unspecified (8) Depression Status: Acute Category: Medical Code(s): F32.A - Depression, unspecified - Assessment and plan all Dx Assessment and Plan for all problems:: Glucose is improving. He has been off of the insulin drip. He continues to remain hungry. He continues with diarrhea despite Lomotil and Levsin. He continues to have feelings of wanting to and behavioral health has been consulted. Nutrition has been consulted as well. <Darrell Anderson - Last Filed: 06/21/22 13:07> Internal Medicine - PN: Subj *Date: 06/21/22 *Time: 13:01 Exam Vital signs and Labs for Last 24 Hours: Temp Pulse Resp BP Pulse Ox 98.6 F 106 H 17 92/60 L 100 06/21/22 08:00 06/21/22 08:00 06/21/22 08:00 06/21/22 08:00 06/21/22 08:00 Laboratory Results - last 24 hr 06/20/22 11:36: POC Glucose 409 H* 06/20/22 16:08: POC Glucose 271 H 06/20/22 18:10: POC Glucose 249 H I & O for Last 24 hours: Intake & Output 06/19/22 06/20/22 06/21/22 06/22/22 11:59 11:59 11:59 11:59 Intake Total 3844 / 3844 2245 / 2245 3889 / 3889 Output Total 900 / 900 500 / 500 Balance 3844 / 3844 1345 / 1345 3389 / 3389 Weight 130 lb 1 oz 124 lb 1.571 oz 122 lb 12.8 oz Assessment and Plan (1) Diabetic ketoacidosis Status: Acute Qualifiers: Diabetes mellitus type: type 1 Diabetes mellitus complication detail: without coma Qualified Code(s): E10.10
--- NOTE | 2022-06-21 09:43 | HMH.PHAINT ---
DISCHARGE MEDICATION COUNSELING PROVIDED. DISCUSSED THE FOLLOWING: -HYOSCYAMINE (FOR DIARRHEA, WITH MEALS AND AT BEDTIME, FLUSHING, INCREASED HEARTRATE, DIZZINESS, DROWSINESS, ABDOMINAL PAIN, CONSTIPATION, DRY MOUTH POSSIBLE) -LOMOTIL (FOR DIARRHEA, WITH MEALS AND AT BEDTIME NEEDED, FLUSHING, INCREASED HEARTRATE, DIZZINESS, DROWSINESS, ABDOMINAL PAIN, CONSTIPATION, DRY MOUTH POSSIBLE)\ PATIENT ENDORSED NO QUESTIONS AT THIS TIME.
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
[2022-06-22 00:46] LABS: POC Glucose,Bedside 95 (70-110)
--- NOTE | 2022-06-22 11:05 | CARE MANAGER ---
Attempted to contact patient related to follow up from hospital discharge. The number listed for the patient is the wrong number and the number listed for his father is not working. ALETHEA Faustin
--- NOTE | 2022-06-22 23:06 | HMH.DCSUM ---
General - General Admission date:: 06/19/22 <Darrell Anderson - 07/06/22 22:43> 06/19/22 <Vannesa Hendrickson - 06/22/22 23:14> Discharge date: 06/21/22 <Vannesa Hendrickson - 06/22/22 23:14> HPI HPI: Mr. Gutierrez is a 36-year-old male patient with a history of type 1 diabetes mellitus who presented to [facility] emergency room stating that he thought his blood pressure was low and that his blood sugar was elevated. Evaluation in the emergency room white blood cell count was 9600 with a hemoglobin of 12.7 hematocrit of 38.1. Anion Was 15.5. BUN 21 and creatinine 0.7.Blood sugar was elevated at 287 with a calcium of 8.2. He had a small level of acetone.He received several liters of IV fluids. He was given 5 units of regular insulin and started on an insulin drip. He gives a history of having been in the [facility] 2 to 3 weeks ago with hypotension and elevated blood sugar. He states he is not sure if he takes his insulin every day but is supposed to take 40 units of Lantus at night with 10 units of regular insulin before every meal. He relates that he does not eat very well because he has no food. He states he cannot afford food. He does smoke about a half a pack of cigarettes a day and denies drinking alcohol. This morning after admission he has had breakfast and ate 2 trays of food. Denies any pain and no nausea or vomiting. He also gives a history of 2+ years of diarrhea for which she sees a director targeted marketing. He has had a fecal transplant and colonoscopy and nothing has helped. He has had 2 stools and has had to being cleaned up twice since admission. He has frequent incontinence. Patient remains on insulin drip and last acetone level was moderate <Vannesa Hendrickson - 06/22/22 23:14> Hospital Course Hospital Course: The patient was continued on IV fluids and weaned from his insulin drip. A diarrhea panel was ordered and was negative. Care management was consulted for discharge planning. Patient was very depressed. He did speak to some of the nurses about not wanting to live. Behavioral health was consulted. He was started back on his regular home insulin and continued to eat as well as have diarrhea. His acetone returned negative on 06/20/2022. His labs were improving. He was started on Lomotil and Levsin. Nutrition consult was ordered as well. The patient had apparently followed with a GI at [place] for his ongoing problem of chronic diarrhea. As there was no GI at [facility], he would need to follow-up with his GI on an outpatient basis once discharged. His glucose improved and he continued with diarrhea despite Lomotil and Levsin. The nursing staff however documented the frequency of his diarrhea had decreased. He was also continent of stool and had previously been incontinent. His DKA had resolved and he was stable for discharge. He will need to schedule GI consult as an outpatient. He was seen in consultation by Kimberley Gleason and she felt he was hopeless related to his current physical condition. She did not start him on any medications. <Vannesa Hendrickson - 06/22/22 23:14> Objective Vital signs: Temp Pulse Resp BP Pulse Ox 98.6 F 106 H 17 92/60 L 100 06/21/22 08:00 06/21/22 08:00 06/21/22 08:00 06/21/22 08:00 06/21/22 08:00 <MonicaDarrell Jovan - 07/06/22 22:43> Temp Pulse Resp BP Pulse Ox 98.6 F 106 H 17 92/60 L 100 06/21/22 08:00 06/21/22 08:00 06/21/22 08:00 06/21/22 08:00 06/21/22 08:00 <Vannesa Hendrickson - 06/22/22 23:14> Narrative: - Constitutional no acute distress - *Routine Respiratory Exam Present: CTA bilaterally - *Routine Cardiovascular Exam Present: RRR - *Routine Abdominal Exam Present: soft, normoactive bowel sounds. Absent: tenderness - *Routine Extremities Exam Absent: cyanosis, clubbing, edema - *Routine Skin Exam Present: warm. Absent: rash - *Routine Neurological Ex
== END 2022-06-21 10:10 | disposition home or self-care (01) | DRG 639 ==
LOC: ER 22:17 → 2ND 06-19 03:39
PROVIDERS: Nurse Practitioner Family; Admitting Provider Family Medicine; Emergency Provider Emergency Medicine; Visit Provider Family Medicine
DX: E11.10 Type 2 diabetes mellitus with ketoacidosis without coma (principal); Z79.4 Long term (current) use of insulin; F17.210 Nicotine dependence, cigarettes, uncomplicated; Z91.14 Patient's other noncompliance with medication regimen; F32.A Depression, unspecified; R19.7 Diarrhea, unspecified; I95.9 Hypotension, unspecified
CPT/HCPCS: 36415; 80048; 80053; 80305; 81001; 82009; 82962; 83735; 84443; 85025; 87506; 99285; C9803; U0003; U0005